=== PATIENT | female | born 1980 | race Caucasian/White ===

== ENCOUNTER → 2019-05-19 12:48 | Outpatient (CLI) | payer OTHER, SELFPAY | PROVIDERS: PCP Physician Assistant | DX: Z23 Encounter for immunization (principal) | CPT/HCPCS: 90471; 90686 ==

== ENCOUNTER → 2019-07-07 13:05 | Outpatient (CLI) | payer OTHER, SELFPAY ==
[2019-07-07 13:38] LABS: Add Manual Diff / Slide Review NO; Basophils Absolute Auto 0 /uL (0-100); Basophils Percent Auto 0.7 % (0-2); Eosinophils Absolute Auto 100 /uL (0-450); Hematocrit 32.8 % (36-46); Hemoglobin 10.9 g/dL (12.0-16.0); Lymphocytes Absolute Auto 2000 /uL (1100-4500); Lymphocytes Percent Auto 35.1 % (25-40); Mean Corpuscular HGB Conc 33.2 % (30-36); Mean Corpuscular Hemoglobin 29.5 PG (26-34); Mean Corpuscular Volume 88.8 fL (80-100); Monocytes Absolute Auto 500 /uL (0-900); Monocytes Percent Auto 8.4 % (3-14); Neutrophils Absolute Auto 3200 /uL (1500-7000); Neutrophils Percent Auto 54.8 % (50-75); Platelet Count 187 X10^3/uL (150-400); Red Blood Cell Count 3.69 X10^6/uL (4.0-5.2); Red Cell Distribution Width 15.2 % (11.6-14.8); White Blood Cell Count 5.8 X10^3/uL (4.5-11.0)
[2019-07-07 14:39] LABS: Alanine Aminotransferase 12 IU/L (<35); Albumin 4.5 g/dL (3.5-5.0); Albumin Globulin Ratio 1.5 (1.0-2.8); Alkaline Phosphatase 42 U/L (38-126); Aspartate Aminotransferase 22 IU/L (14-36); BUN Creatinine Ratio 13.8 (6-22); Bilirubin Total 0.4 mg/dL (0.2-1.3); Blood Urea Nitrogen 11 mg/dL (7-17); Calcium 8.9 mg/dL (8.4-10.2); Carbon Dioxide 27 mmol/L (22-32); Chloride 104 mmol/L (98-107); Estimated Glomerular Filt Rate > 60.0 mL/min (>60); Glucose 79 mg/dL (70-100); HEMOLYSIS < 15 (0-50); Potassium 3.9 mmol/L (3.4-5.1); Sodium 139 mmol/L (137-145); Total Protein 7.5 g/dL (6.3-8.2)
== END ==
PROVIDERS: PCP Physician Assistant; Visit Provider Physician Assistant
DX: R10.10 Upper abdominal pain, unspecified (principal); R14.0 Abdominal distension (gaseous)
CPT/HCPCS: 36415; 80053; 85025

== ENCOUNTER → 2019-07-13 07:35 | Outpatient (CLI) | payer OTHER, SELFPAY ==
--- NOTE | 2019-07-13 07:36 | DI.US.S_ITS ---
PROCEDURE: US ABDOMEN COMPLETE INDICATIONS: UPPER ABDOMINAL BLOATING TECHNIQUE: Real-time scanning was performed of the abdominal and retroperitoneal organs, with image documentation. COMPARISON: None. FINDINGS: Liver: Liver is normal in size and homogeneous in echotexture. Gallbladder: No gallstones identified. Normal gallbladder wall. No pericholecystic fluid. Negative sonographic Spencer sign. Biliary ducts: Intrahepatic bile ducts are non-dilated. Extrahepatic bile duct caliber measures 4.1 mm. Normal is 6-7 mm or less in diameter, or 10 mm or less post-cholecystectomy. Pancreas: Visualized portions of the pancreas are sonographically normal. Spleen: Spleen is normal in size and homogeneous in echotexture. Kidneys: Kidneys are normal in size and echotexture. Right kidney measures 10.8 cm long; left kidney measures 9.9 cm long. No hydronephrosis or nephrolithiasis. No solid masses. Aorta: Visualized aorta is normal in caliber at less than 3 cm. Iliacs: Proximal common iliac arteries are normal in caliber at less than 2.5 cm. IVC: Intrahepatic inferior vena cava is patent. Miscellaneous: No free abdominal fluid. IMPRESSION: No source for upper abdominal bloating identified. Dictated by: Anand STAUFFER Interpreted: Fifi Michelle MD on 07/13/2019 at 8:25 Approved by: Fifi Michelle M.D. on 07/13/2019 at 13:58
--- NOTE | 2019-07-13 08:08 | DI.RAD.S_ITS ---
PROCEDURE: FL UPPER GI SMALL BOWEL INDICATIONS: Upper abdominal pain; bloating COMPARISON: None. FINDINGS: KUB: Preprocedural strip presser film shows a normal bowel gas pattern. No suspicious abdominal calcifications. Visualized solid organ contours appear normal in size. No suspicious bony abnormalities. Esophagus: Air-contrast views demonstrate a normal mucosal pattern. On single-contrast views, there is normal peristalsis. No fixed strictures, extrinsic mass effects, or diverticula. No hiatal hernias or elicited gastroesophageal reflux. Stomach: The gastric lumen is normally distensible, and has normal rugal fold thickness. No mucosal masses or ulcers. The pylorus and duodenal bulb have a normal morphology. Small bowel: Duodenal folds appear normal in thickness. There is normal transit time of barium through the small intestine. Small bowel loops appear normal in caliber throughout. Jejunal and ileal folds are smooth and normal in thickness. No strictures, intraluminal masses, or extrinsic mass effects. The terminal ileum is identified and appears normal. IMPRESSION: Normal examination. Dictated by: Mendoza Guzman M.D. on 07/13/2019 at 10:06 Approved by: Mendoza Guzman M.D. on 07/13/2019 at 10:06
== END ==
PROVIDERS: PCP Physician Assistant; Visit Provider Physician Assistant
DX: R14.0 Abdominal distension (gaseous) (principal); R10.10 Upper abdominal pain, unspecified
CPT/HCPCS: 74245; 76700

== ENCOUNTER → 2019-07-14 13:29 | Outpatient (CLI) | payer OTHER, SELFPAY ==
--- NOTE | 2019-07-14 13:35 | DIET.PN ---
Dietary Progress Note Assessment: 39y F presenting for help with initiation of low-FODMAP diet to help manage IBS-C and bloating which has become an interruption to her daily life. Pt has txtr tony, started with exploring new diet, interested in instruction of how long to follow diet and how to reintroduce foods. Pt has hx of high ABX use in childhood for ear infections, has been dealing with overt sx of bloating, gas, and constipation for 10-15y. 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 Pt feels like stress and eating on the run contribute to sx. Notices sx mostly in afternoon and evening during the week. Does not eat lunch at the hospital, usually has carrot sticks, pretzels and a protein bar instead. 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 Foods which seem to cause sx include: dates, figs, hummus, quinoa, artificial sweetener, added sugars, maybe oats, grains may be a problem Pt was consuming probiotics but she feels it may make sx worse. She will try [employer] water kefir to see if she can tolerate it. However dairy seems to be okay. When looking though food categories, pt likely has strong latex cross allergies as well as strong sensitivities to Fructans, possibly other FODMAP categories. Labs: all WNL Nutrition Diagnosis: poor nutrition quality of life r/t nutrition related knowledge deficit aeb fear of not knowing which foods cause sx, more days than not with afternoons of bloating and gas, avoidance of entire food categories. Interventions: Educated pt on IBS-c, why low FODMAP diet is indicated, what FODMAP foods are. Discussed timing of this diet as it is holiday season and the diet lasts 4-8w with slow reintroduction that can take up to 4mo. Pt may wait to start low FODMAP in August but still avoid foods which she knows trigger sx. Discussed reintroduction of food categories starting with those which seem less likely to cause sx. Pt will introduce one new food every 2-3d while using food diary. Pt received several handouts as well as meal plans to use while on low FODMAP diet. Monitoring/Evaluations: consider testing for celiac disease, making sure she does not avoid gluten before test as that will cause false negative. pt will schedule f/u if having difficulty with any step in process. Goal is to find list of foods to avoid that is short, ensuring wide variety in diet.
== END ==
PROVIDERS: PCP Physician Assistant; Visit Provider Physician Assistant
DX: K58.1 Irritable bowel syndrome with constipation (principal); Z71.3 Dietary counseling and surveillance
CPT/HCPCS: 97802

== ENCOUNTER → 2020-04-02 14:42 | Outpatient (CLI) | payer OTHER, SELFPAY | PROVIDERS: PCP Physician Assistant; Visit Provider Physician Assistant | DX: R30.0 Dysuria (principal) | CPT/HCPCS: 87086 ==

== ENCOUNTER → 2020-06-28 | Outpatient (CLI) | payer OTHER, SELFPAY | PROVIDERS: PCP Physician Assistant; Referring Provider Internal Medicine; Visit Provider Internal Medicine | DX: Z23 Encounter for immunization (principal) | CPT/HCPCS: 90471; 90686 ==

== ENCOUNTER → 2020-08-24 15:45 | Outpatient (CLI) | payer OTHER, SELFPAY ==
[2020-08-24] MEDS: COVID-19 VACC(MODERNA-1)/PF 100 MCG/0.5 ML VIAL IM (15:54)
== END ==
PROVIDERS: PCP Physician Assistant; Visit Provider Internal Medicine
DX: Z23 Encounter for immunization (principal)
CPT/HCPCS: 0011A; 91301

== ENCOUNTER → 2020-09-20 13:42 | Outpatient (CLI) | payer OTHER, SELFPAY ==
[2020-09-20] MEDS: COVID-19 VACC #2, MRNA(MOD) 100 MCG/0.5 ML VIAL IM (13:44)
== END ==
PROVIDERS: PCP Physician Assistant; Visit Provider Internal Medicine
DX: Z23 Encounter for immunization (principal)
CPT/HCPCS: 0012A; 91301

== ENCOUNTER → 2020-10-10 16:10 | Outpatient (CLI) | payer OTHER, SELFPAY ==
--- NOTE | 2020-10-10 16:13 | DI.RAD.S_ITS ---
PROCEDURE: XR LUMBAR SPINE 2-3V INDICATIONS: chronic lumbar pain left side TECHNIQUE: 3 views of the lumbar spine were acquired. COMPARISON: None. FINDINGS: Bones: 5 [id number] vertebrae are present. Trace levo curvature. Multilevel disc degeneration, moderate at the L5-S1 level. Mild L4-L5 and L5-S1 facet joint arthropathy. No vertebral body compression fractures. No suspicious bony lesions. Soft tissues: Overlying bowel gas pattern is normal. No suspicious soft tissue calcifications. IMPRESSION: Multilevel spondylosis, most notably at the L5-S1 level where there is moderate disc degeneration and mild facet joint arthropathy. Dictated by: Anand Rocha [facility] Interpreted: Adin Baker MD on 10/10/2020 at 16:36 Approved by: Adin Baker M.D. on 10/10/2020 at 17:07
== END ==
PROVIDERS: PCP Nurse Practitioner Family; Referring Provider Nurse Practitioner Family; Visit Provider Nurse Practitioner Family
DX: M47.816 Spondylosis without myelopathy or radiculopathy, lumbar region (principal); M47.817 Spondylosis without myelopathy or radiculopathy, lumbosacral region; M51.37 Other intervertebral disc degeneration, lumbosacral region; M54.9 Dorsalgia, unspecified; G89.29 Other chronic pain
CPT/HCPCS: 72100

== ENCOUNTER → 2020-10-11 07:02 | Outpatient (CLI) | payer OTHER, SELFPAY ==
[2020-10-11 08:33] LABS: Hemoglobin 9.7 g/dL (12.0-16.0); Mean Corpuscular HGB Conc 32.3 % (30-36); Mean Corpuscular Hemoglobin 26.7 PG (26-34); Mean Corpuscular Volume 82.6 fL (80-100); Platelet Count 193 X10^3/uL (150-400); Red Blood Cell Count 3.63 X10^6/uL (4.0-5.2); Red Cell Distribution Width 15.7 % (11.6-14.8); White Blood Cell Count 4.3 X10^3/uL (4.5-11.0)
[2020-10-11 09:01] LABS: Alanine Aminotransferase 15 IU/L (<35); Albumin Globulin Ratio 1.4 (1.0-2.8); Alkaline Phosphatase 46 U/L (38-126); Aspartate Aminotransferase 25 IU/L (14-36); BUN Creatinine Ratio 15.4 (6-22); Bilirubin Total 0.4 mg/dL (0.2-1.3); Blood Urea Nitrogen 12 mg/dL (7-17); Calcium 9.1 mg/dL (8.4-10.2); Carbon Dioxide 28 mmol/L (22-32); Chloride 104 mmol/L (98-107); Cholesterol 154 mg/dL (140-199); Estimated Glomerular Filt Rate > 60.0 mL/min (>60); Globulin 2.8 g/dL (1.7-4.1); Glucose 93 mg/dL (70-100); HDL Cholesterol 66 mg/dL (40-60); HEMOLYSIS < 15 (0-50); LDL Cholesterol Calculated 73 mg/dL (<100); Potassium 4.2 mmol/L (3.4-5.1); Sodium 136 mmol/L (137-145); Total Protein 6.8 g/dL (6.3-8.2); Triglycerides 74 mg/dL (35-150)
== END ==
PROVIDERS: PCP Nurse Practitioner Family; Referring Provider Nurse Practitioner Family; Visit Provider Nurse Practitioner Family
DX: Z00.00 Encounter for general adult medical examination without abnormal findings (principal); Z13.6 Encounter for screening for cardiovascular disorders
CPT/HCPCS: 36415; 80053; 80061; 85027

== ENCOUNTER → 2020-10-31 07:20 | Outpatient (CLI) | payer OTHER, SELFPAY ==
[2020-10-31 08:09] LABS: Hematocrit 30.6 % (36-46); Mean Corpuscular HGB Conc 32.7 % (30-36); Mean Corpuscular Hemoglobin 26.9 PG (26-34); Mean Corpuscular Volume 82.4 fL (80-100); Platelet Count 185 X10^3/uL (150-400); Red Blood Cell Count 3.71 X10^6/uL (4.0-5.2); Red Cell Distribution Width 16.3 % (11.6-14.8); White Blood Cell Count 4.1 X10^3/uL (4.5-11.0)
[2020-10-31 08:30] LABS: HEMOLYSIS < 15 (0-50); Iron 34 ug/dL (37-170)
[2020-10-31 08:42] LABS: Percent Iron Saturation 9 % (15-50); Total Iron Binding Capacity 374 ug/dL (265-497); Transferrin 310 mg/dL (206-381)
[2020-10-31 08:58] LABS: Ferritin 4 ng/mL (6-137)
== END ==
PROVIDERS: PCP Nurse Practitioner Family; Referring Provider Nurse Practitioner Family; Visit Provider Nurse Practitioner Family
DX: D50.9 Iron deficiency anemia, unspecified (principal)
CPT/HCPCS: 36415; 82728; 83540; 83550; 85027

== ENCOUNTER → 2020-11-04 08:14 | Outpatient (CLI) | payer OTHER, SELFPAY ==
--- NOTE | 2020-11-04 | DI.MG.S_ITS ---
BILATERAL DIGITAL SCREENING MAMMOGRAM 3D/2D WITH CAD: 11/04/2020 CLINICAL: Routine screening. Baseline exam. No prior exams were available for comparison. The tissue of both breasts is heterogeneously dense. This may lower the sensitivity of mammography. Current study was also evaluated with a Computer Aided Detection (CAD) system. There are regional fine pleomorphic calcifications in the right breast posterior depth superior region. Possible 0.9 cm architectural distortion in the right breast posterior depth central to the nipple seen on the MLO view 4.5 cm from the nipple. A 0.8 cm oval asymmetry with an indistinct margin in the right breast sub-areolar depth central to the nipple is seen on the MLO view only. No other significant masses, calcifications, or other findings are seen in either breast. IMPRESSION: INCOMPLETE: NEEDS ADDITIONAL IMAGING EVALUATION 1. Regional fine pleomorphic calcifications in the right breast posterior depth superior region are indeterminate. 2. Possible 0.9 cm architectural distortion in the right breast posterior depth central to the nipple is indeterminate. 3. A 0.8 cm oval asymmetry in the right breast sub-areolar depth central to the nipple is indeterminate. 4. A diagnostic mammogram and ultrasound are recommended to further assess the above abnormalities. This exam was interpreted at Station ID: [id number]. NOTE: For mammograms, a report in lay terms will be sent to the patient. Approximately 15% of breast malignancies will not be visualized mammographically. In the management of a palpable breast mass, a negative mammogram must not discourage biopsy of a clinically suspicious lesion. Electronically Signed By: Vinny Ascencio M.D. jr/:11/04/2020 08:50:19 letter sent: Additional Imaging Needed ACR BI-RADS Category 0: Incomplete [id number]
== END ==
PROVIDERS: PCP Nurse Practitioner Family; Referring Provider Nurse Practitioner Family; Visit Provider Nurse Practitioner Family
DX: Z12.31 Encounter for screening mammogram for malignant neoplasm of breast (principal)
CPT/HCPCS: 77063; 77067

== ENCOUNTER → 2020-11-21 08:47 | Outpatient (CLI) | payer OTHER, SELFPAY ==
--- NOTE | 2020-11-21 | DI.MG.S_ITS ---
UNILATERAL RIGHT DIGITAL DIAGNOSTIC MAMMOGRAM 3D/2D WITH ADDITIONAL VIEWS: 11/21/2020 CLINICAL: Additional evaluation requested from prior study. Comparison is made to exam dated: 11/04/2020 [facility]. The tissue of right breast is heterogeneously dense. This may lower the sensitivity of mammography. The possible 0.9 cm architectural distortion in the right breast middle depth central to the nipple seen on the mediolateral oblique view only 4.5 cm from the nipple is no longer seen and resembles fibroglandular tissue. This is not confirmed in additional views. There also is a 0.7 cm oval asymmetry with an obscured margin in the right breast sub-areolar depth central to the nipple seen on the mediolateral oblique view only. Additionally, there are regional calcifications in the right breast at 12 o'clock middle depth. These are confirmed in additional views. They appear ill-defined and faint on the craniocaudal view and become layered/crescentic in appearance on the lateral view and consistent with benign milk of calcium calcifications. No other significant masses or calcifications are seen in the breast. IMPRESSION: INCOMPLETE: NEEDS ADDITIONAL IMAGING EVALUATION The 0.7 cm oval asymmetry in the right breast sub-areolar depth central to the nipple seen on the mediolateral oblique view only is indeterminate. An ultrasound is recommended for further evaluation and is scheduled to immediately follow this examination. The resolved possible architectural distortion in the middle depth of the central right breast is likely dense fibroglandular tissue. An ultrasound is recommended to confirm and is scheduled to immediately follow this examination. The regional calcifications in the right breast at 12 o'clock middle depth are consistent with milk of calcium and are benign. This exam was interpreted at Station ID: [id number]. NOTE: For mammograms, a report in lay terms will be sent to the patient. Approximately 15% of breast malignancies will not be visualized mammographically. In the management of a palpable breast mass, a negative mammogram must not discourage biopsy of a clinically suspicious lesion. Electronically Signed By: Js Hackett M.D. aty/:11/21/2020 11:55:13 ACR BI-RADS Category 0: Incomplete [id number]
--- NOTE | 2020-11-21 08:49 | DI.US.S_ITS ---
ULTRASOUND OF RIGHT BREAST: 11/21/2020 CLINICAL: Patient returns today to evaluate a focal asymmetry in the right breast. Comparison is made to exams dated: 11/21/2020 mammogram and 11/04/2020 mammogram - [facility]. Color flow and real-time ultrasound of the right breast were performed. [place] scale images of the real-time examination were reviewed. There is a 0.7 cm x 0.3 cm x 0.4 cm wider than tall oval cyst in the right breast central to the nipple in the retroareolar region. This oval cyst is anechoic. This correlates with mammographic findings. There is no sonographic abnormality to correspond with resolved possible architectural distortion in the right breast central to the nipple middle depth which is consistent with dense fibroglandular tissue. Overall, no significant abnormalities were seen sonographically in the right breast. IMPRESSION: BENIGN There is no sonographic evidence of malignancy. The 0.7 cm x 0.3 cm x 0.4 cm wider than tall oval simple cyst in the right breast central to the nipple in the retroareolar region is benign. Benign right breast calcifications were visualized on mammographic evaluation from earlier same day. A 1 year screening mammogram is recommended. Findings and recommendations were conveyed to the patient during today's evaluation. This exam was interpreted at Station ID: [id number]. Electronically Signed By: Js Hackett M.D. at/:11/21/2020 11:59:16 letter sent: Normal Exam Ultrasound BI-RADS: 2 Benign
--- NOTE | 2020-11-21 12:08 | ONC.MSW ---
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 Forwarded to scheduling for next available initial consult time. No immediate needs indicated at this time.
== END ==
PROVIDERS: PCP Nurse Practitioner Family; Referring Provider Nurse Practitioner Family; Visit Provider Nurse Practitioner Family
DX: N60.01 Solitary cyst of right breast (principal)
CPT/HCPCS: 76642; 77065; G0279

== ENCOUNTER → 2021-05-04 13:58 | Outpatient (CLI) | payer OTHER, SELFPAY ==
[2021-05-04 14:32] LABS: COVID19 -Nasal RAPID Negative (Negative)
== END ==
PROVIDERS: PCP Nurse Practitioner Family; Visit Provider Nurse Practitioner
DX: Z20.822 Contact with and (suspected) exposure to COVID-19 (principal)
CPT/HCPCS: 87635

== ENCOUNTER → 2021-05-10 08:34 | Outpatient (CLI) | payer OTHER, SELFPAY ==
[2021-05-10 11:46] LABS: COVID19 -Nasal RAPID Negative (Negative)
== END ==
PROVIDERS: PCP Nurse Practitioner Family; Visit Provider Physician Assistant
DX: Z20.822 Contact with and (suspected) exposure to COVID-19 (principal)
CPT/HCPCS: 87635

== ENCOUNTER → 2021-05-17 09:01 | Outpatient (CLI) | payer OTHER, SELFPAY ==
[2021-05-17 14:33] LABS: COVID19 -Nasal RAPID Negative (Negative)
== END ==
PROVIDERS: PCP Nurse Practitioner Family; Visit Provider Physician Assistant
DX: Z20.822 Contact with and (suspected) exposure to COVID-19 (principal); Z01.812 Encounter for preprocedural laboratory examination
CPT/HCPCS: 87635

== ENCOUNTER → 2021-06-29 18:55 | Outpatient (CLI) | payer OTHER, SELFPAY | PROVIDERS: PCP Nurse Practitioner Family; Referring Provider Internal Medicine; Visit Provider Internal Medicine | DX: Z23 Encounter for immunization (principal) | CPT/HCPCS: 90471; 90686 ==

== ENCOUNTER → 2021-07-07 13:12 | Outpatient (CLI) | payer OTHER, SELFPAY ==
[2021-07-07] MEDS: COVID-19 VACC #3, MRNA(MOD) 50 MCG/0.25 ML VIAL IM (13:15)
== END ==
PROVIDERS: PCP Nurse Practitioner Family; Visit Provider Internal Medicine
DX: Z23 Encounter for immunization (principal)
CPT/HCPCS: 0013A; 91301

== ENCOUNTER → 2025-06-07 08:04 | Outpatient (CLI) | payer OTHER, SELFPAY ==
[2025-06-07 09:06] LABS: Add Manual Diff / Slide Review NO; Hematocrit 30.7 % (36-46); Hemoglobin 10.1 g/dL (12.0-16.0); Lymphocytes Absolute Auto 1800 /uL (1100-4500); Mean Corpuscular HGB Conc 32.9 % (30-36); Mean Corpuscular Hemoglobin 27.3 PG (26-34); Mean Corpuscular Volume 82.9 fL (80-100); Platelet Count 195 X10^3/uL (150-400)
[2025-06-07 09:23] LABS: HEMOLYSIS < 15 (0-50); Iron 33 ug/dL (37-170)
[2025-06-07 09:27] LABS: Alanine Aminotransferase 17 IU/L (<35); Albumin 4.5 g/dL (3.5-5.0); Albumin Globulin Ratio 1.5 (1.0-2.8); Alkaline Phosphatase 45 U/L (38-126); Blood Urea Nitrogen 17 mg/dL (7-17); Calcium 9.3 mg/dL (8.4-10.2); Carbon Dioxide 25 mmol/L (22-32); Chloride 104 mmol/L (98-107); Cholesterol 166 mg/dL (140-199); Estimated Glomerular Filt Rate > 60 mL/min (>60); Globulin 3.0 g/dL (1.7-4.1); Glucose 100 mg/dL (70-99); HDL Cholesterol 77 mg/dL (40-60); HEMOLYSIS 27 (0-50); Potassium 4.6 mmol/L (3.4-5.1); Sodium 137 mmol/L (137-145); Total Protein 7.5 g/dL (6.3-8.2); Triglycerides 112 mg/dL (35-150)
[2025-06-07 09:38] LABS: Percent Iron Saturation 9 % (15-50); Total Iron Binding Capacity 375 ug/dL (265-497); Transferrin 337 mg/dL (206-381)
[2025-06-07 09:56] LABS: Thyroid Stimulating Hormone 1.11 uIU/mL (0.47-4.68)
[2025-06-07 10:02] LABS: Ferritin 5 ng/mL (6-137)
[2025-06-07 10:31] LABS: Folate 8.7 ng/mL (2.76-20.0); Vitamin B12 492 pg/mL (239-931)
== END ==
PROVIDERS: PCP Student in an Organized Health Care Education/Training Program; Referring Provider Student in an Organized Health Care Education/Training Program; Visit Provider Student in an Organized Health Care Education/Training Program
DX: D50.9 Iron deficiency anemia, unspecified (principal); Z87.42 Personal history of other diseases of the female genital tract
CPT/HCPCS: 36415; 80053; 80061; 82607; 82728; 82746; 83540; 83550; 84443; 85025

== ENCOUNTER → 2025-06-07 13:25 | Outpatient (CLI) | payer OTHER, SELFPAY ==
--- NOTE | 2025-06-07 13:26 | DI.US.S_ITS ---
PROCEDURE: US PELVIC COMPLETE INDICATIONS: Heavy Menses TECHNIQUE: Real-time scanning was performed of the pelvic organs, with image documentation. Additional endovaginal scanning was necessary due to incomplete visualization of the adnexal and endometrial structures by transabdominal scanning. COMPARISON: None. FINDINGS: Uterus: Uterus is anteverted and normal in size at 10.6 x 5.2 x 5 point cm. The myometrium is heterogeneous. The endometrium measures 5.1 mm combined thickness. Possible endometrial polyp measuring 10 x 8 x 8 mm. Left posterior intramural fibroid measuring 17 x 10 x 13 mm. Ovaries: The right ovary measures 3.9 x 1.5 x 3.9 cm, with a calculated ovarian volume of 12.2 cc. The left ovary measures 2.8 x 1.5 x 2.4 cm, with a calculated ovarian volume of 5.3 cc. The ovaries have a normal sonographic appearance. Less than 12 follicles can be seen in each ovary. No adnexal masses are seen. Other: No pathologic free abdominal or pelvic fluid. IMPRESSION: Possible endometrial polyp measuring 10 mm. Recommend short-term follow-up ultrasound to assess stability. Intramural fibroid measuring 1.7 cm. Ovaries are normal in appearance. We strive to produce accurate, complete, and clear reports of imaging services. To assist us in improving patient care, this report was composed using standard report templates and voice recognition software. Therefore, it may contain abnormal punctuation, insertions and/or omissions. Occasional wrong-word or sound-alike substitutions may occur. Though we review the report and make efforts to correct it, we do recommend that the report be read carefully in proper context to recognize any text inaccuracies. Dictated by: Gerardo Wong M.D. on 06/07/2025 at 15:37 Approved by: Gerardo Wong M.D. on 06/07/2025 at 15:40
== END ==
LOC: US 13:26
PROVIDERS: PCP Student in an Organized Health Care Education/Training Program; Referring Provider Student in an Organized Health Care Education/Training Program; Visit Provider Student in an Organized Health Care Education/Training Program
DX: D25.1 Intramural leiomyoma of uterus (principal); Z87.42 Personal history of other diseases of the female genital tract; D50.9 Iron deficiency anemia, unspecified
CPT/HCPCS: 36415; 76830; 76856; 80053; 80061; 82607; 82728; 82746; 83540; 83550; 84443; 85025

== ENCOUNTER → 2025-07-02 16:09 | Outpatient (CLI) | payer OTHER, SELFPAY ==
--- NOTE | 2025-07-02 16:10 | DI.MG.S_ITS ---
MM screening mammo BI: 07/02/2025. BI-RADS: 1 CLINICAL: 45-year old female for bilateral screening mammogram. Tyrer-Cuzick lifetime risk of 11.7%. No personal or first-degree family history of breast cancer. PRIOR EXAMS 11/27/2023, 11/21/2020, 11/04/2020. MAMMOGRAPHY TECHNIQUE: 2D and 3D (tomosynthesis) digital mammographic views obtained, with additional images as needed for full coverage. Current study was also evaluated with a Computer Aided Detection (CAD) system. DENSITY C. The breasts are heterogeneously dense, which may obscure small masses. MAMMOGRAPHY FINDINGS Bilateral: No suspicious mass, asymmetry, microcalcification, or other abnormality seen. IMPRESSION: * No evidence of malignancy. RECOMMENDATIONS Bilateral * Annual screening mammography. OVERALL ASSESSMENT CATEGORY BI-RADS-1: Negative. The [employer] recommends annual screening mammography beginning at age 40 for women with average risk of breast cancer. ELECTRONICALLY SIGNED: Luz Joyce M.D. on 07/05/2025 at 12:24:00 PM PT Interpreting Station ID: [id number]
== END ==
LOC: MAMMO 16:10
PROVIDERS: PCP Student in an Organized Health Care Education/Training Program; Referring Provider Student in an Organized Health Care Education/Training Program; Visit Provider Student in an Organized Health Care Education/Training Program
DX: Z12.31 Encounter for screening mammogram for malignant neoplasm of breast (principal); R92.333 Mammographic heterogeneous density, bilateral breasts
CPT/HCPCS: 77063; 77067